=== PATIENT | female | born 1960 | race Caucasian/White ===

== ENCOUNTER 2016-07-19 12:03 | Outpatient (CLI) ==
[2016-07-19 13:40] LABS: BASOPHILS # (AUTO) 0.1 K/uL (0-0.2); BASOPHILS % (AUTO) 0.8 % (0.0-3.0); EOSINOPHILS # (AUTO) 0.2 K/ul (0.0-0.7); EOSINOPHILS % (AUTO) 2.2 % (0.0-7.0); HEMATOCRIT 35.3 % (37.0-47.0); HEMOGLOBIN 11.4 g/dl (12.0-16.0); IMMATURE GRANULOCYTE % (AUTO) 0.3 % (0.0-5.0); LYMPHOCYTES # (AUTO) 1.6 K/uL (0.60-3.4); LYMPHOCYTES % (AUTO) 21.7 (10.0-50.0); MEAN CORPUSCULAR HEMOGLOBIN 29.4 pg (27.0-31.0); MEAN CORPUSCULAR HGB CONC 32.3 (31.8-35.4); MONOCYTES # (AUTO) 0.5 K/uL (0.4-2.0); MONOCYTES % (AUTO) 6.9 (0-10); NEUTROPHILS % (AUTO) 68.1; PLATELET COUNT 260 10^3/uL (140-440); RED BLOOD COUNT 3.88 10^6/ul (4.20-5.40); WHITE BLOOD COUNT 7.39 K/ul (4.6-10.2)
[2016-07-19 14:11] LABS: ALBUMIN 3.2 g/dL (3.4-5.0); ALBUMIN/GLOBULIN RATIO 0.74; ANION GAP 13.8; BILIRUBIN,TOTAL 0.33 mg/dL (0.00-1.20); BUN/CREATININE RATIO 16.66; CALCIUM 9.4 mg/dL (8.2-10.2); CHOL/HDL RATIO 3.2 (4.5-5.5); CREATININE 0.96 mg/dL (0.60-1.30); POTASSIUM 3.8 mmol/L (3.5-5.10); TOTAL PROTEIN 7.5 g/dL (6.4-8.2)
== END 2016-07-19 12:04 | disposition home or self-care (01) ==
LOC: LAB 12:03
PROVIDERS: ATTEND Nurse Practitioner Family
DX: E75.6 Lipid storage disorder, unspecified (principal); I10 Essential (primary) hypertension; M54.2 Cervicalgia
CPT/HCPCS: 36415; 80053; 80061; 84439; 84443; 85025

== ENCOUNTER 2016-09-05 16:11 | Outpatient (CLI) | END 2016-09-05 16:12 | disposition home or self-care (01) | LOC: LAB 16:11 | PROVIDERS: ATTEND Nurse Practitioner Family | DX: E55.9 Vitamin D deficiency, unspecified (principal) | CPT/HCPCS: 36415; 82306 ==

== ENCOUNTER 2016-10-25 06:08 | Outpatient (CLI) ==
--- NOTE | 2016-10-26 10:42 | MODSTECHO ---
Ordering Physician: PAULINA HOLLOWAY Date of Test: 10/25/2016 Medical History: HYPERTENSION, PALITATIONS, SURGICAL CLEARANCE Current Medications: GABAPENTIN, LOSARTAN/HYDROCHLOROTHIAZIDE, SPIRONOLACTONE, TAMOXIFEN, VIT D, MULTI-VITAMIN Physical Findings: SI, S2, NO S3 Resting EKG: SINUS RHYTHM, NO ACUTE CHANGES Target Heart Rate: 140/165 STAGE MPH/GRADE HEART RATE BPM BLOOD PRESSURE mmhg RHYTHM S-T SEGMENT UP DOWN SYMPTOMS,COMMENTS At Rest 75 118/82 SR X NONE 1 1.7/0% 133 140/80 SR X NONE 2 1.7/5% 3 1.7/10% 4 2.5/12% 5 3.4/14% 6 4.2/16% 7 5.18% Immediately after 142 SR SHORT OF BREATH Total Time: 4:45 Maximum Heart Rate Reached: 142 Reason for Termination: SHORT OF BREATH 2 Min Post Exercise: HR 114 BPM, BP 132/78 MMHG, SR, +/-, NO CHEST PAIN 4 Min Post Exercise: HR 96 BPM ____ INTERPRETATION: 96% OXYGEN SATURATION WITH EXERCISE ON ROOM AIR METS 4.0 1. NO EVIDENCE OF ISCHEMIA BY ST-T WAVE 2. NO CHEST PAIN OR CHEST DISCOMFORT 3. COUPLE OF PREMATURE VENTRICULAR CONTRACTIONS WITH EXERCISE 4. BLOOD PRESSURE RESPONSE NORMAL NORMAL LEFT VENTRICULAR CONTRACTILITY RESTING AND POST EXERCISE MTDD
--- NOTE | 2016-10-26 10:53 | ECHOSTRESS ---
Date of Exam: 10/25/2016 Ordering Physician: PAULINA HOLLOWAY Reason for Echo: HYPERTENSION, PALPITATIONS, SURGICAL CLEARANCE, STRESS TEST-NO ISCHEMIA M-Mode Normal Adult Results LV Dimensions Normal Adult Results AoV Opening excursions >1.6 LVEDD-base- 3.5-5.8 Ao root dimensions 2.0-3.7 LVESD-base- 3.1-4.6 L. Atrium dimensions 1.9-3.8 Post. Wall thickness 0.8-1.1 IV septum (thickness) 0.7-1.2 Post. Wall excursion 0.72-1.3 Septal motion Systolic motion R. Ventricular cavity 1.5-2.0 LVEF 60% Paradoxical septal wall motion 2-D: NORMAL LEFT VENTRICULAR CONTRACTILITY RESTING AND POST EXERCISE M-MODE: MV: AV: TV: PV: CHAMBER SIZE: WALL MOTION: NORMAL LEFT VENTRICULAR CONTRACTILITY RESTING AND POST EXERCISE PERICARDIUM: INTERPRETATION: 1. NORMAL LEFT VENTRICULAR CONTRACTILITY RESTING AND POST EXERCISE MTDD
== END 2016-10-25 06:09 | disposition home or self-care (01) ==
LOC: CAR 06:08
PROVIDERS: ATTEND Emergency Medicine
DX: I10 Essential (primary) hypertension (principal); E66.9 Obesity, unspecified; Z01.818 Encounter for other preprocedural examination

== ENCOUNTER 2017-01-12 13:13 | Outpatient (CLI) | END 2017-01-12 13:14 | disposition home or self-care (01) | LOC: LAB 13:13 | PROVIDERS: ATTEND Emergency Medicine | DX: R73.9 Hyperglycemia, unspecified (principal); I10 Essential (primary) hypertension; M50.20 Other cervical disc displacement, unspecified cervical region ==

== ENCOUNTER 2017-03-17 11:18 | Outpatient (CLI) ==
--- NOTE | 2017-03-17 13:26 | DI ---
Exam: Three x-rays of the right shoulder. Comparison: Chest x-ray performed on 03/05/2015. Reason for exam: Pain in right shoulder. FINDINGS: No acute fracture or dislocation. The joint spaces are well maintained. Operative change s are seen after anterior cervical discectomy and fusion. There is mild degenerative disease in the acromioclavicular joint space. The clavicle appears intact. Impression: No acute fracture or dislocation in the right shoulder with mild degenerative disease
--- NOTE | 2017-03-17 13:29 | DI ---
Exam: Three x-rays of the left foot. Comparison: None available. Reason for exam: Pain. FINDINGS: No obvious fracture or dislocation. There is moderate degenerative disease in the midfoot with joint space narrowing and osteophyte formation. There is also moderate degenerative disease in the interphalangeal joint spaces. There are moderately sized calcaneal enthesiophytes. Impression: 1. No acute fracture is seen in the left foot. 2. Moderate degenerative disease in the midfoot, calcaneus, and phalanges.
== END 2017-03-17 11:19 | disposition home or self-care (01) ==
LOC: RAD 11:18
PROVIDERS: ATTEND Emergency Medicine
DX: M79.672 Pain in left foot (principal); M25.511 Pain in right shoulder

== ENCOUNTER 2017-04-07 13:04 | Outpatient (CLI) ==
--- NOTE | 2017-04-07 13:36 | DI ---
EXAM: Lumbar spine three views HISTORY: Lower back pain FINDINGS: Compared to 06/05/2015. There is mild scoliosis convex to the left. Transitional vertebr al body anatomy at the lumbosacral junction is again noted. Lowermost fully formed disc space taken a s L5/S1. There is at least mild bilateral sacroiliac joint arthropathy. Lateral projections reveal moderate to severe diffuse facet arthropathy. Moderate diffuse degenerative endplate and disc diseas e is seen. There is posterior spondylolisthesis of L4 relative to L3 and L5 by an estimated 0.35 cm similar to that previously seen. No other definite listhesis. No overall loss of vertebral body hei ght. No acute fracture. IMPRESSION: 1. Significant degenerative changes of the spine with mild listhesis as described. Findings appear similar to that previously described. 2. Transitional vertebral body anatomy at the lumbosacral junction.
== END 2017-04-07 13:05 | disposition home or self-care (01) ==
LOC: RAD 13:04
PROVIDERS: ATTEND Emergency Medicine
DX: M54.5 Low back pain (principal); G89.29 Other chronic pain

== ENCOUNTER 2017-06-16 12:32 | Outpatient (CLI) | END 2017-06-16 12:33 | disposition home or self-care (01) | LOC: RHC-LAB 12:32 | PROVIDERS: ATTEND Emergency Medicine | DX: R73.9 Hyperglycemia, unspecified (principal); I10 Essential (primary) hypertension; K21.9 Gastro-esophageal reflux disease without esophagitis; M50.20 Other cervical disc displacement, unspecified cervical region | CPT/HCPCS: 36415; 80053; 80061; 84443; 85025 ==